=== PATIENT | female | born 1955 | race Caucasian/White ===

== ENCOUNTER → 2017-03-15 16:21 | Outpatient (CLI) | payer MEDICARE, BC ==
[2016-05-27 07:12] VITALS: BMI 42.9
[~2017-03-15 16:21] MED LIST: FUROSEMIDE40 MG PO; LYRICA50 MG PO; METHADONE 10 MG10 MG PO; METHOTREXATE2.5 MG PO; MS CONTIN15 MG PO; PANCRELIPASE 51 EACH PO; POTASSIUM CITRA5 MEQ PO; ROBAXIN500 MG PO; TOPROL XL50 MG PO
== END | disposition home or self-care (01) ==
LOC: D.MAMMO 13:00
DX: Z12.31 Encounter for screening mammogram for malignant neoplasm of breast (principal)